=== PATIENT | female | born 1975 | race Caucasian/White ===

== ENCOUNTER 2017-06-14 05:56 | Day surgery (SDC) | payer OTHER ==
[2017-06-14] MEDS ORDERED: Versed 2 MG/2 ML Injection IV ONE (05:57)
[2017-06-14] MEDS ORDERED: DIPRIVAN 200 MG/20 ML IV ONE (05:57)
[2017-06-14] MEDS ORDERED: Lactated Ringers 1,000 ML IV SCH (06:00)
[2017-06-14] MEDS ORDERED: Lactated Ringers 1,000 ML IV ONE ×2 (06:23→10:00)
[2017-06-14 08:49] VITALS: PULSE 75; O2SAT 100
[2017-06-14 09:03] VITALS: BP 148/86
--- NOTE | 2017-06-14 10:56 | OP ---
SURGERY DATE/TIME: 06/14/2017 0735 PREOPERATIVE DIAGNOSIS: History of colon polyps. POSTOPERATIVE DIAGNOSIS: Normal colon. PROCEDURE: Colonoscopy. SURGEON: Dr. Mendoza. ANESTHESIA: MAC. Medications given by anesthesia department. HISTORY: The patient is a 42 year-old who reports with history of previously having two adenomas removed during colonoscopy. The patient was felt the need to have reinvestigation at this time. She was reappraised of the risks of the procedure including the risk of perforation, phlebitis, untoward reaction to medication, bleeding and missed lesions. The patient verbalized her understanding and desired to have the procedure performed. DESCRIPTION OF PROCEDURE: The patient was given the medications by the anesthesia department. She had continuous pulse oximetry, ECG monitoring, intermittent blood pressure monitoring and tidal CO2 monitoring during the examination. She was placed in the left lateral decubitus position. A digital rectal examination was performed and revealed external hemorrhoids. No other masses were noted. Normal anal sphincter tone. The flexible Olympus pediatric colonoscope was used to intubate the rectum. A view of the colon was developed sequentially to the cecum. Upon insertion and withdrawal, including a retroflex view in the rectum, no mucosal lesions were encountered. The scope was removed from the patient who tolerated the procedure well and was sent back to OP recovery in good condition. The prep was noted to be fair.
== END 2017-06-14 09:05 | disposition home or self-care (01) ==
LOC: SDC 05:56
PROVIDERS: ATTEND Family Medicine
PROC: 0DJD8ZZ Inspection of Lower Intestinal Tract, Via Natural or Artificial Opening Endoscopic (ICD-10-PCS; principal; 2017-06-14)
DX: Z86.010 Personal history of colon polyps (principal)
CPT/HCPCS: J2250; J2704